=== PATIENT | male | born 1980 | race American Indian/Alaskan Native ===

== ENCOUNTER 2017-02-16 16:25 | Emergency (ER) | payer SELFPAY ==
[2017-02-16 16:37] VITALS: BP 107/71
[2017-02-16] MEDS ORDERED: NORCO 5/325 PO ONE (18:28)
[2017-02-16] MEDS ORDERED: TRIMOX PO ONE (18:29)
--- NOTE | 2017-02-16 18:33 | Emergency Department Report ---
ED ENT HPI - General Chief complaint: Dental/Oral Stated complaint: TOOTHACHE/PAIN Time Seen by Provider: 02/16/17 18:22 Source: patient Mode of arrival: Ambulatory Limitations: No Limitations - History of Present Illness Initial comments: PT states he has been having intermittent toothaches x 3 months. PT states he had a crown on that tooth and it fell off about 1year ago. PT's last dental visit was about 4 years ago. PT states OTC medications do not help with his pain, he last tried them 3 weeks ago. pt rates his pain 9/10. PT states he has a bad taste in his mouth. MD complaint: tooth pain Onset/Timin -: Gradual, month(s) Location: tooth # (19) 1 - pain Severity: severe Severity scale (0 -10): 9 Quality: aching, sharp Consistency: intermittent Improves with: none Worsens with: eating Context- Dental: history of dental caries, poor dental care Associated Symptoms: toothache. denies: fever, gum swelling, sore throat - Related Data Previous Rx's Medication Instructions Recorded Last Taken Type Acetaminophen/Codeine [Tylenol #3] 1 tab PO Q6H PRN #8 tab 02/16/17 Unknown Rx Amoxicillin 500 mg PO BID #20 capsule 02/16/17 Unknown Rx Chlorhexidine Mouthwash [Peridex] 15 ml MM BID 7 Days 02/16/17 Unknown Rx Ibuprofen [Motrin] 600 mg PO Q8H PRN #15 tablet 02/16/17 Unknown Rx Allergies Allergy/AdvReac Type Severity Reaction Status Date / Time No Known Allergies Allergy Unverified 02/16/17 16:37 ED Dental HPI - General Chief complaint: Dental/Oral Stated complaint: TOOTHACHE/PAIN Time Seen by Provider: 02/16/17 18:22 Source: patient Mode of arrival: Ambulatory Limitations: No Limitations - Related Data Previous Rx's Medication Instructions Recorded Last Taken Type Acetaminophen/Codeine [Tylenol #3] 1 tab PO Q6H PRN #8 tab 02/16/17 Unknown Rx Amoxicillin 500 mg PO BID #20 capsule 02/16/17 Unknown Rx Chlorhexidine Mouthwash [Peridex] 15 ml MM BID 7 Days 02/16/17 Unknown Rx Ibuprofen [Motrin] 600 mg PO Q8H PRN #15 tablet 02/16/17 Unknown Rx Allergies Allergy/AdvReac Type Severity Reaction Status Date / Time No Known Allergies Allergy Unverified 02/16/17 16:37 ED Review of Systems ROS: Stated complaint: TOOTHACHE/PAIN Other details as noted in HPI Comment: All other systems reviewed and negative Constitutional: denies: chills, fever Gastrointestinal: denies: nausea, vomiting Neurological: headache (at times, when pain is severe) ED Past Medical Hx - Past Medical History Previous Medical History?: No - Surgical History Past Surgical History?: No - Social History Smoking Status: Never Smoker Substance Use Type: None - Medications Home Medications: Home Medications Medication Instructions Recorded Confirmed Last Taken Type Acetaminophen/Codeine [Tylenol #3] 1 tab PO Q6H PRN #8 tab 02/16/17 Unknown Rx Amoxicillin 500 mg PO BID #20 capsule 02/16/17 Unknown Rx Chlorhexidine Mouthwash [Peridex] 15 ml MM BID 7 Days 02/16/17 Unknown Rx Ibuprofen [Motrin] 600 mg PO Q8H PRN #15 tablet 02/16/17 Unknown Rx ED Physical Exam - General Limitations: No Limitations General appearance: alert, in no apparent distress - Head Head exam: Present: atraumatic, normocephalic, normal inspection - Eye Eye exam: Present: normal appearance, PERRL, EOMI. Absent: conjunctival injection - ENT ENT exam: Present: normal orophraynx, mucous membranes moist, TM's normal bilaterally, normal external ear exam - Expanded ENT Exam Expanded Ear exam: Present: normal external inspection Mouth exam: Present: normal external inspection, tongue normal. Absent: drooling, trismus Teeth exam: Present: dental caries, dental tenderness #, other (no dental abscess noted ). Absent: gingival enlargement 1 - Dental Tenderness (severe dental caries) Throat exam: Positive: normal inspection - Neck Neck exam: Present: normal inspection, full ROM. Absent: lymphadenopathy - Respiratory Respiratory exam: Present: normal lung sounds bilaterally. Absent: respiratory distress, wheezes, rales, rhonchi - Cardiovascular Cardiovascular Exam: Present: regular rate, normal rhythm, normal heart sounds - Extremities Exam Extremities exam: Present: normal inspection, full ROM - Back Exam Back exam: Present: normal inspection, full ROM. Absent: tenderness, CVA tenderness (R), CVA tenderness (L) - Neurological Exam Neurological exam: Present: alert, oriented X3, normal gait - Psychiatric Psychiatric exam: Present: normal affect, normal mood - Skin Skin exam: Present: warm, dry, intact ED Course Vital Signs 02/16/17 02/16/17 16:35 19:01 Temperature 98.2 F Pulse Rate 57 L Respiratory 16 16 Rate Blood Pressure 107/71 O2 Sat by Pulse 99 Oximetry - Reevaluation(s) Reevaluation #1: 02/16/17 18:37 PT aware of dx and plan of care. PT aware no driving after taking narcotic pain medication. PT aware need for Dental follow up. PT verbalizes understanding. - Pulse Oximetry Interpretation Digit-Finger Initial Pulse Oximetry Readin Actions Taken: none ED Medical Decision Making - Differential Diagnosis dental abscess, toothache Critical Care Time: No Critical care attestation.: If time is entered above; I have spent that time in minutes in the direct care of this critically ill patient, excluding procedure time. ED Disposition Clinical Impression: Toothache, Dental decay Disposition: DC-01 TO HOME OR SELFCARE Is pt being admited?: No Does the pt Need Aspirin: No Condition: Stable Instructions: Dental Caries (ED), Toothache (ED) Additional Instructions: good oral hygiene follow up with Dentist in 3-5 days No driving or alcohol after taking Tylenol #3 Return to ED if worsening or concerns Prescriptions: Acetaminophen/Codeine [Tylenol #3] 1 tab PO Q6H PRN #8 tab PRN Reason: Pain , Severe (7-10) Amoxicillin 500 mg PO BID #20 capsule Chlorhexidine Mouthwash [Peridex] 15 ml MM BID 7 Days Ibuprofen [Motrin] 600 mg PO Q8H PRN #15 tablet PRN Reason: Pain Referrals: PRIMARY CARE, [Primary Care Provider] - 3-5 Days DALI VITALE MD [Staff Physician] - 3-5 Days [facility] [Outside] - 3-5 Days [facility] [Outside] - 3-5 Days [facility] [Outside] - 3-5 Days Forms: Accompanied Note, Work/School Release Form(ED) Time of Disposition: 18:39
== END 2017-02-16 19:02 | disposition home or self-care (01) ==
LOC: ED 16:25
DX: K02.9 Dental caries, unspecified (principal); K08.89 Other specified disorders of teeth and supporting structures
CPT/HCPCS: 99282